=== PATIENT | female | born 1930 | race Caucasian/White ===

== ENCOUNTER 2017-02-07 11:19 | Inpatient (IN) | payer OTHER, MEDICAID ==
--- NOTE | 2017-02-07 12:10 | CPEKG ---
Heart Rate: 83 RR Interval: 723 P-R Interval: 152 QRSD Interval: 100 QT Interval: 376 QTC Interval: 442 P [place]: -3 QRS [place]: 55 T Wave [place]: -7 EKG Severity - ABNORMAL ECG - EKG Impression: SINUS RHYTHM EKG Impression: MULTIFORM VENTRICULAR PREMATURE COMPLEXES EKG Impression: BORDERLINE T ABNORMALITIES, INFERIOR LEADS Electronically Signed By: Ashish Anguiano 07-Feb-2017 13:01:14
[2017-02-07 12:18] LABS: ANION GAP 11 mEq/L (8-16); CALCIUM 9.8 mg/dL (8.5-10.4); CARBON DIOXIDE 23 mEq/l (22-31); CHLORIDE 105 mEq/L (97-110); CREATININE 0.7 mg/dL (0.6-1.0); GLOMERULAR FILTRATION RATE > 60; GLUCOSE 99 mg/dL (70-100); POTASSIUM 4.5 mEq/L (3.5-5.2); SODIUM 139 mEq/L (134-144)
[2017-02-07 12:33] LABS: % IMMATURE GRANULYOCYTES 0.6 % (0.0-1.1); ABSOLUTE IMMATURE GRANULOCYTES 0.05 10^3/uL (0.00-0.10); ADD DIFF? NO; ADD MORPH? NO; ADD SCAN? NO; ATYPICAL LYMPHOCYTE FLAG 10 (0-99); FRAGMENT RBC FLAG 0 (0-99); HEMATOCRIT 36.2 % (38.0-47.0); LEFT SHIFT FLG 0 (0-99); LIPEMIA HEMOLYSIS FLAG 90 (0-99); MEAN CELL VOLUME 86.4 fL (81.5-99.8); MEAN PLATELET VOLUME 10.4 fL (8.7-11.7); PLATELET CLUMPS FLAG 0 (0-99); PLATELET COUNT 343 10^3/uL (150-400); RED BLOOD CELL COUNT 4.19 10^6/uL (4.18-5.33); RED CELL DISTRIBUTION WIDTH 12.9 % (11.5-15.2)
[2017-02-07 12:35] LABS: MEAN CELL HEMOGLOBIN CONCENTR. 35.9 g/dL (32.4-36.7)
[2017-02-07] MEDS ORDERED: NS 1,000 ML IV ONE (12:51)
--- NOTE | 2017-02-07 13:32 | EDPHY ---
H & P Stated Complaint: Fatigue, Rt Arm pain Time Seen by Provider: 02/07/17 12:57 HPI/ROS: CHIEF COMPLAINT: Fatigue HISTORY OF PRESENT ILLNESS: The patient is an 86-year-old female who is brought to the emergency department by her family for fatigue over the last 2 days and difficulty getting up and out of bed. Patient denies being in any pain. She has not had a fever. She denies GI symptoms. She denies symptoms. She denies headache. She denies trauma. She states that she simply feels weak. No focal deficits. REVIEW OF SYSTEMS: Constitutional: Weak, denies: chills, fever, recent illness, recent injury EENTM: denies: blurred vision, double vision, nose congestion Respiratory: denies: cough, shortness of breath Cardiac: denies: chest pain, irregular heart rate, lightheadedness, palpitations Gastrointestinal/Abdominal: denies: abdominal pain, diarrhea, nausea, vomiting, blood streaked stools Genitourinary: denies: dysuria, frequency, hematuria, pain Musculoskeletal: denies: joint pain, muscle pain Skin: denies: lesions, rash, jaundice, bruising Neurological: denies: headache, numbness, paresthesia, tingling, dizziness, weakness Hematologic/Lymphatic: denies: blood clots, easy bleeding, easy bruising Immunologic/allergic: denies: HIV/AIDS, transplant EXAM: GENERAL: Pleasant, generally weak, , well-nourished and in no acute distress. HEAD: Atraumatic, normocephalic. EYES: Pupils equal round and reactive to light, extraocular movements intact, sclera anicteric, conjunctiva are normal. ENT: TMs normal, nares patent, oropharynx clear without exudates. Moist mucous membranes. NECK: Normal range of motion, supple without lymphadenopathy or JVD. LUNGS: Breath sounds clear to auscultation bilaterally and equal. No wheezes rales or rhonchi. HEART: Regular rate and rhythm without murmurs, rubs or gallops. ABDOMEN: Soft, nontender, normoactive bowel sounds. No guarding, no rebound. No masses appreciated. BACK: No CVA tenderness, no spinal tenderness, step-offs or deformities EXTREMITIES: Normal range of motion, no pitting or edema. No clubbing or cyanosis. NEUROLOGICAL: Cranial nerves II through XII grossly intact. Normal speech, can sit up in bed . 5/5 strength, normal movement in all extremities, normal sensation PSYCH: Normal mood, normal affect. SKIN: Warm, dry, normal turgor, no visible rashes or lesions. Source: Patient Exam Limitations: No limitations - Personal History Current Tetanus Diphtheria and Acellular Pertussis (TDAP): Unsure - Medical/Surgical History Hx Asthma: No Hx Chronic Respiratory Disease: No Hx Diabetes: No Hx Cardiac Disease: No Hx Renal Disease: No Hx Cirrhosis: No Hx Alcoholism: No Hx HIV/AIDS: No Hx Splenectomy or Spleen Trauma: No Other PMH: memory loss, hearing loss, hyperlipidemia, Respiratory failure, Eczema, cardiomegaly - Family History Significant Family History: No pertinent family hx - Social History Smoking Status: Unknown if ever smoked Alcohol Use: Sober Drug Use: None Constitutional: Initial Vital Signs Temperature (C) 37.3 C 02/07/17 11:26 Heart Rate 77 02/07/17 11:26 Respiratory Rate 18 02/07/17 11:26 Blood Pressure 159/119 H 02/07/17 11:26 O2 Sat (%) 97 02/07/17 11:26 O2 Delivery Mode Nasal Cannula O2 (L/minute) 2 Allergies/Adverse Reactions: No Known Allergies Allergy (Verified 02/07/17 16:07) Home Medications: Medication Instructions Recorded NK [No Known Home Meds] 02/07/17 Medical Decision Making - Diagnostics EKG Interpretation: An EKG obtained and was read and documented in trace view. Please see trace view for full reading and report. Sinus rhythm, PVCs, no ischemic changes, T- wave inversion in lead 3 only Imaging Results: Imaging Impressions Humerus X-Ray 02/07/17 12:17 Impression: No evidence for acute osseous abnormality in the left humerus. Shoulder X-Ray 02/07/17 12:17 Impression: 1. Moderate degenerative change acromioclavicular joint. Anterior curve to the acromion and subacromial spur. 2. Mild degenerative change glenohumeral joint. Imaging: Discussed imaging studies w/ on call Radiologist ED Course/Re-evaluation: The patient's workup is unremarkable however her daughter is here and states that she remains confused and weak. Daughter states that she had a temperature of 99 this morning and has been incontinent several times today. I suggested we treat her for supposed urinary tract infection and culture her urine. Daughter states that the patient is DNR does not wish to prolong her life and at this point would not want to start antibiotics. We did agree to admission to the hospital for further workup and evaluation. The patient does have a small amount of blood in her urine likely from a traumatic catheterization. 4:20 p.m. I discussed the case with Dr FLOWER Mike who will admit to the medical service. Differential Diagnosis: Partial list of the Differential diagnosis considered include but were not limited to; urinary tract infection, electrolyte abnormality, infection, pneumonia and although unlikely based on the history and physical exam, I also considered meningitis, fracture, acute coronary disease. - Data Points Laboratory Results: Laboratory Results 02/07/17 11:25 02/07/17 11:25 02/07/17 02/07/17 02/07/17 15:05 11:25 11:25 WBC 8.58 10^3/uL 10^3/uL (3.80-9.50) RBC 4.19 10^6/uL 10^6/uL (4.18-5.33) Hgb 13.0 g/dL g/dL (12.6-16.3) Hct 36.2 % L % (38.0-47.0) MCV 86.4 fL fL (81.5-99.8) MCH 31.0 pg pg (27.9-34.1) MCHC 35.9 g/dL g/dL (32.4-36.7) RDW 12.9 % % (11.5-15.2) Plt Count 343 10^3/uL 10^3/uL (150-400) MPV 10.4 fL fL (8.7-11.7) Neut % (Auto) 78.7 % H % (39.3-74.2) Lymph % (Auto) 8.0 % L % (15.0-45.0) [place] % (Auto) 11.3 % % (4.5-13.0) Eos % (Auto) 0.8 % % (0.6-7.6) Baso % (Auto) 0.6 % % (0.3-1.7) Nucleat RBC Rel Count 0.0 % % (0.0-0.2) Absolute Neuts (auto) 6.75 10^3/uL H 10^3/uL (1.70-6.50) Absolute Lymphs (auto) 0.69 10^3/uL L 10^3/uL (1.00-3.00) Absolute Monos (auto) 0.97 10^3/uL H 10^3/uL (0.30-0.80) Absolute Eos (auto) 0.07 10^3/uL 10^3/uL (0.03-0.40) Absolute Basos (auto) 0.05 10^3/uL 10^3/uL (0.02-0.10) Absolute Nucleated RBC 0.00 10^3/uL 10^3/uL (0-0.01) Immature Gran % 0.6 % % (0.0-1.1) Immature Gran # 0.05 10^3/uL 10^3/uL (0.00-0.10) Sodium 139 mEq/L mEq/L (134-144) Potassium 4.5 mEq/L mEq/L (3.5-5.2) Chloride 105 mEq/L mEq/L (97-110) Carbon Dioxide 23 mEq/l mEq/l (22-31) Anion Gap 11 mEq/L mEq/L (8-16) BUN 17 mg/dL mg/dL (7-23) Creatinine 0.7 mg/dL mg/dL (0.6-1.0) Estimated GFR > 60 Glucose 99 mg/dL mg/dL (70-100) Calcium 9.8 mg/dL mg/dL (8.5-10.4) Urine Color YELLOW Urine Appearance CLEAR Urine pH 5.0 (5.0-7.5) Ur Specific [place] 1.013 (1.002-1.030) Urine Protein NEGATIVE (NEGATIVE) Urine Ketones NEGATIVE (NEGATIVE) Urine Blood 2+ H (NEGATIVE) Urine Nitrate NEGATIVE (NEGATIVE) Urine Bilirubin NEGATIVE (NEGATIVE) Urine Urobilinogen 2.0 EU H EU (0.2-1.0) Ur Leukocyte Esterase NEGATIVE (NEGATIVE) Urine RBC 15-25 /hpf H /hpf (0-3) Urine WBC TNP Ur Epithelial Cells TRACE /lpf /lpf (NONE-1+) Urine Mucus TRACE /lpf /lpf (NONE-1+) Urine Glucose NEGATIVE (NEGATIVE) Medications Given: Discontinued Medications Sodium Chloride (Ns) 1,000 mls @ 0 mls/hr IV ONCE ONE PRN Reason: Wide Open Stop: 02/07/17 12:52 Last Admin: 02/07/17 12:52 Dose: 1,000 mls Departure - Departure Disposition: [facility] Clinical Impression: Generalized weakness Dementia Qualifiers: Dementia type: unspecified type Dementia behavioral disturbance: without behavioral disturbance Qualified Code(s): F03.90 - Unspecified dementia without behavioral disturbance Condition: Fair
[2017-02-07 15:21] LABS: COLOR YELLOW; LEUKOCYTE ESTERASE,URINE NEGATIVE (NEGATIVE); NITRITE,URINE NEGATIVE (NEGATIVE)
[2017-02-07 15:23] LABS: RBC,URINE 15-25 /hpf (0-3)
[2017-02-07 15:24] LABS: MUCUS TRACE /lpf (NONE-1+)
[2017-02-07] MEDS ORDERED: ACETAMINOPHEN 325 MG TAB PO PRN (16:18)
[2017-02-07] MEDS ORDERED: ONDANSETRON 4 MG/2 ML VIAL IVP PRN (16:18)
[2017-02-07] MEDS ORDERED: ONDANSETRON DISINTEGRATING 4 MG TAB PO PRN (16:18)
--- NOTE | 2017-02-07 18:39 | GHP ---
[f rep st] HISTORY AND PHYSICAL DATE OF ADMISSION: 02/07/2017 CHIEF COMPLAINT: Lethargy, anorexia, and weakness. HISTORY OF PRESENT ILLNESS: An 86-year-old female, who is really quite healthy with no underlying m edical conditions beyond mild cognitive impairment, who presents after a notable decline in the week preceding her arrival to the hospital. The patient was noted to be less active by her care provide rs and in her community at her assisted living. Then today the care provider noted that she was hav ing a very difficult time getting the patient up and out of bed at all to go to her meals, reporting that she felt weak and tired and had poor appetite. Therefore, the patient was brought to the [facility]. On my evaluation, she is not specifically endorsing abdominal pain or discomfort. She is denying nausea or vomiting. She denies chest pain, shortness of breath. Denies headache o r vision changes. Denies any new rashes or lower extremity edema. Was reporting left arm pain to t care provider at the assisted living, but is denying so to me. The family member also notes that the patient had urinary incontinence which is very unusual for her today. PAST MEDICAL HISTORY: Mild cognitive impairment. SOCIAL HISTORY: Negative for tobacco, alcohol, or illicit drugs. FAMILY HISTORY: Notable for the female relatives who live quite long. There is no other history of cognitive impairment in the family. ADVANCED DIRECTIVES: The patient is do not resuscitate. Her daughter would be her medical decision maker. REVIEW OF SYSTEMS: A 10-point review of systems is negative with the exception of that reported in the HPI. PHYSICAL EXAMINATION: VITAL SIGNS: Blood pressure 133/89, heart rate 94, respiratory rate 16, 94% on room air, 37.3. GENERAL: This is a very pleasant, elderly female, lying flat in bed. HEENT: N otable for moist mucous membranes. Eye exam is negative for any icterus. CARDIAC: Patient is regu lar rate and rhythm. Notable systolic murmur is heard best at the left upper sternal border. PULMO NARY: Good respiratory effort. Clear to auscultation bilaterally. GASTROINTESTINAL: The abdomen is soft. She has positive bowel sounds and nontender in all 4 quadrants. MUSCULOSKELETAL: Negativ e for any lower extremity edema. SKIN: Negative for any rashes. NEUROLOGIC: The patient is orien anayeli x1. PSYCHIATRIC: She is pleasant and cooperative on interview and examination. DATA: White count 8.5, hematocrit 36.2, platelets of 343, sodium 139, creatinine 0.7. Potassium no rmal. Urinalysis did not perform the test on white blood cells, however, there are red blood cells noted with urobilinogen. X-ray of the left shoulder, which I personally reviewed and interpreted, shows no acute fractures. Humeral x-ray on the left, which I personally reviewed and interpreted, shows no acute fractures. EKG. Which I personally reviewed and interpreted, shows a sinus rhythm, normal axis, interventricula r conduction delay with a PVC. No acute ST-T changes. ASSESSMENT AND PLAN: This is an 86-year-old female with mild cognitive impairment presenting with l ethargy. 1. Acute encephalopathy. Differential includes metabolic from a possible underlying infection. Lo w suspicion for medications as she is not on any chronic meds or new supplements prior to presentati on. Suspicious obviously for an acute urinary tract infection with the concurrent urinary incontine nce. Will send urine for culture and empirically treat with 1 dose of IV ceftriaxone this evening a s well as IV fluids in the emergency department. We will follow the patient's clinical progression. On discussion with the family if the urine culture is negative tomorrow, we can discontinue antibi otics and proceed forward with a stronger sensation worsening progression of her underlying cognitiv e dementia. 2. Urobilinogen in the urine. Will add liver function tests to her labs. No history of liver dise ase in the past, however. 3. Diet: Regular. DISPOSITION: Greater than 2 midnights as the patient is quite elderly, and I suspect will require p hysical therapy and occupational therapy for assessment so we can make safe disposition recommendati ons regardless of whether we are treating an active urinary tract infection or not. I have discussed the case with the emergency room physician. Patient will be triaged to the medical -surgical floor for care. /[id number]/MODL
[2017-02-07 19:03] LABS: ALBUMIN 3.5 g/dL (3.5-5.0); BILIRUBIN-CONJUGATED 0.5 mg/dL (0.0-0.5); BILIRUBIN-UNCONJUGATED 0.5 mg/dL (0.0-1.1); TOTAL PROTEIN 7.1 g/dL (6.3-8.2)
[2017-02-08] MEDS ORDERED: NS 500 ML IV ONE (11:08)
--- NOTE | 2017-02-08 13:12 | HOSPPROG ---
Hospitalist Progress Note Assessment/Plan: # Acute encephalopathy - no obvious reversible causes thus far in work-up - no issues overnight- oxygen saturations 98%on RA continue empiric treatment for UTI until Cx returns - no WBC elevation - PT/OT - empiric abx # chronic cognitive decline - possible we are seeing the waxing/waning decline of dementia - supportive care # Acute left arm pain - humeral XRAY (personally reviewed and interpreted) no acute fractures no actively complaining of pain - PT/OT # proph - lovenox # diet - poor appetite - regular # dispo - > 2 MN as need therapy assessments for dispo planning and culture results for Abx decisions I have discussed the case with RN - encourage PO and activity today Subjective: denies arm pain Objective: Vital Signs Temp Pulse Resp BP Pulse Ox 36.8 C 70 18 163/93 H 98 02/08/17 07:44 02/08/17 07:44 02/08/17 07:44 02/08/17 07:44 02/08/17 07:44 02/07/17 02/08/17 02/09/17 05:59 05:59 05:59 Intake Total 1200 Balance 1200 - Physical Exam Constitutional: appears nourished Eyes: anicteric sclera Ears, Nose, Mouth, Throat: moist mucous membranes Cardiovascular: regular rate and rhythym Respiratory: no respiratory distress, no rales or rhonchi Gastrointestinal: normoactive bowel sounds Genitourinary: no bladder fullness Skin: warm, normal color Musculoskeletal: No asymmetric calves Neurologic: No AAOx3 Psychiatric: interacting appropriately, No agitated Lymph, Heme, Immunologic: no cervical LAD ICD10 Worksheet Patient Problems: Problems Problem Status Onset Dementia Acute Generalized weakness Acute
[2017-02-08] MEDS: ENOXAPARIN 40 MG/0.4 ML SYR SC SCH (19:34)
[2017-02-09 04:59] LABS: HEMATOCRIT 31.8 % (38.0-47.0); MEAN CELL HEMOGLOBIN 29.6 pg (27.9-34.1); MEAN CELL HEMOGLOBIN CONCENTR. 34.6 g/dL (32.4-36.7); MEAN CELL VOLUME 85.5 fL (81.5-99.8); RED BLOOD CELL COUNT 3.72 10^6/uL (4.18-5.33); RED CELL DISTRIBUTION WIDTH 12.9 % (11.5-15.2)
[2017-02-09] MEDS: ENOXAPARIN 40 MG/0.4 ML SYR SC SCH (09:04)
--- NOTE | 2017-02-09 16:36 | HOSPPROG ---
Hospitalist Progress Note Assessment/Plan: # Acute encephalopathy - no obvious reversible causes thus far in work-up - no issues or agitation overnight pt has been clearer and more interactive each day EKG (personally reviewed and interpreted) sinus no acute changes- - oxygen saturations 98%on RA Urine cx - NGTD - PT/OT - complete 3d course of empiric abx for uncomplicated cystitis # chronic cognitive decline - possible we are seeing the waxing/waning decline of dementia - supportive care # Acute left arm pain - humeral XRAY -no acute fractures no actively complaining of pain - PT/OT # proph - lovenox # diet - poor appetite - regular # dispo - > 2 MN as need therapy assessments for dispo planning and culture results for Abx decisions I have discussed the case with CM - PT is recommending SNF - will investigate options for safe placement Subjective: denies arm pain today Objective: Vital Signs Temp Pulse Resp BP Pulse Ox 36.4 C 70 18 154/70 H 95 02/09/17 08:00 02/09/17 08:00 02/09/17 08:00 02/09/17 08:00 02/09/17 08:00 Laboratory Results 02/09/17 04:22 02/08/17 02/09/17 02/10/17 05:59 05:59 05:59 Intake Total 1200 550 750 Balance 1200 550 750 - Physical Exam Constitutional: chronically ill appearing Eyes: anicteric sclera Ears, Nose, Mouth, Throat: moist mucous membranes Cardiovascular: regular rate and rhythym Respiratory: no respiratory distress, no rales or rhonchi Gastrointestinal: normoactive bowel sounds, soft, non-tender abdomen Genitourinary: no bladder fullness Skin: warm, normal color Musculoskeletal: No asymmetric calves Neurologic: AAOx3 Psychiatric: interacting appropriately, not anxious Lymph, Heme, Immunologic: no cervical LAD ICD10 Worksheet Patient Problems: Problems Problem Status Onset Dementia Acute Generalized weakness Acute
[2017-02-10] MEDS: ENOXAPARIN 40 MG/0.4 ML SYR SC SCH (12:29)
--- NOTE | 2017-02-10 13:26 | PDIAF ---
- Diagnosis Diagnosis: ENCEPHALOPATHY Code Status: Do Not Resuscitate - Medication Management Discharge Medications: Medications to Continue on Transfer Acetaminophen [Tylenol 325mg (*)] 650 mg PO Q4HRS PRN #0 tab 02/10/17 [Last Taken Unknown] Discharge Medications: Refer to the Discharge Home Medication list for PRN reason. - Orders Services needed: Registered Nurse, Physical Therapy, Occupational Therapy Diet Recommendation: no restrictions on diet Diet Texture: Regular Texture Diet - Follow Up Care Current Providers and Referrals: Silke Pandya PA [Primary Care Provider] - As per Instructions
--- NOTE | 2017-02-10 15:57 | HOSPPROG ---
Hospitalist Progress Note Assessment/Plan: # Acute encephalopathy - no obvious reversible causes thus far in work-up - no issues or agitation overnight pt has been clearer and more interactive each day EKG (personally reviewed and interpreted) sinus no acute changes- - oxygen saturations 95%on RA Urine cx - NGTD - PT/OT - completed 3d course of empiric abx for uncomplicated cystitis # chronic cognitive decline - possible we are seeing the waxing/waning decline of dementia - supportive care # Acute left arm pain - humeral XRAY -no acute fractures no actively complaining of pain - PT/OT # proph - lovenox # diet - poor appetite - regular # dispo - > 2 MN as need therapy assessments for dispo planning and culture results for Abx decisions I have discussed the case with CM - working on SNF dc today Subjective: tired but no pain Objective: Vital Signs Temp Pulse Resp BP Pulse Ox 37.0 C 70 16 147/64 H 94 02/10/17 15:26 02/10/17 15:26 02/10/17 15:26 02/10/17 15:26 02/10/17 15:26 Laboratory Results 02/09/17 04:22 02/09/17 02/10/17 02/11/17 05:59 05:59 05:59 Intake Total 550 1000 Balance 550 1000 - Physical Exam Constitutional: appears nourished Eyes: anicteric sclera Ears, Nose, Mouth, Throat: moist mucous membranes Cardiovascular: regular rate and rhythym Respiratory: no respiratory distress Gastrointestinal: normoactive bowel sounds, soft, non-tender abdomen Genitourinary: no bladder fullness Skin: warm, normal color Musculoskeletal: No asymmetric calves Neurologic: AAOx3 Psychiatric: interacting appropriately Lymph, Heme, Immunologic: no cervical LAD ICD10 Worksheet Patient Problems: Problems Problem Status Onset Dementia Acute Generalized weakness Acute
--- NOTE | 2017-02-10 18:55 | GDS ---
[f rep st] DISCHARGE SUMMARY DISCHARGE DIAGNOSES: Include: 1. Acute encephalopathy, presumed secondary to underlying cystitis and dementia. 2. Mild cognitive decline. HISTORY OF PRESENT ILLNESS: An 86-year-old female with limited past medical history, but known pro gressing dementia, who is brought in by family for lethargy and somnolence. Patient was admitted an d empirically treated for occult UTI based on abnormal urinalysis. She received 3 days of IV antibi otics, with then a normal urine culture. Antibiotics were discontinued. On the day of disposition, she is more at her baseline mental status. Able to complete her ADLs wit h prompting, and is oriented to person, place, and time. The patient is being discharged to alf facility for increased support and prompting of care. Presumed acute uncomplicated cystitis: The patient was not able to predictably provide symptoms, pryor d abnormal urinalysis, and was treated empirically. Urine culture is negative. She received a full 3-day course. MEDICATIONS AT THE TIME OF TRANSFER: Please reference medication reconciliation printed on 02/11/20 17. PENDING STUDIES: At the time of this dictation, none. TIME SPENT: I spent greater than 30 minutes in the planning and coordination of this discharge. /[id number]/MODL
[2017-02-11] MEDS: ENOXAPARIN 40 MG/0.4 ML SYR SC SCH (10:19)
--- NOTE | 2017-02-11 14:21 | HOSPPROG ---
Hospitalist Progress Note Assessment/Plan: # Acute encephalopathy - no obvious reversible causes thus far in work-up - no issues or agitation overnight pt has been clearer and more interactive each day EKG - sinus no acute changes- - oxygen saturations 95%on RA Urine cx - NGTD - PT/OT - completed 3d course of empiric abx for uncomplicated cystitis # chronic cognitive decline - possible we are seeing the waxing/waning decline of dementia - supportive care # Acute left arm pain - humeral XRAY -no acute fractures no actively complaining of pain - PT/OT # proph - lovenox # diet - poor appetite - regular # dispo - > 2 MN as need therapy assessments for dispo planning and culture results for Abx decisions I have discussed the case with CM - waiting on approval for SNF discharge today Subjective: tired Objective: Vital Signs Temp Pulse Resp BP Pulse Ox 36.9 C 72 16 129/83 H 97 02/10/17 23:01 02/10/17 23:01 02/10/17 23:01 02/10/17 23:01 02/10/17 23:01 Laboratory Results 02/09/17 04:22 02/10/17 02/11/17 02/12/17 05:59 05:59 05:59 Intake Total 1000 750 Balance 1000 750 - Physical Exam Constitutional: appears nourished Eyes: anicteric sclera Ears, Nose, Mouth, Throat: moist mucous membranes Cardiovascular: regular rate and rhythym Respiratory: no respiratory distress, no rales or rhonchi Gastrointestinal: normoactive bowel sounds, soft, non-tender abdomen Genitourinary: no bladder fullness Skin: warm, normal color Neurologic: No AAOx3 Psychiatric: interacting appropriately Lymph, Heme, Immunologic: no cervical LAD ICD10 Worksheet Patient Problems: Problems Problem Status Onset Dementia Acute Generalized weakness Acute
[2017-02-12] MEDS: ENOXAPARIN 40 MG/0.4 ML SYR SC SCH (10:05)
--- NOTE | 2017-02-12 10:37 | HOSPPROG ---
Hospitalist Progress Note Assessment/Plan: 86-year-old with dementia is admitted with acute encephalopathy. Evaluation in the hospital so far has not revealed any obvious cause. Although she was treated for possible cystitis with 3 days of empiric antibiotics. # Acute encephalopathy - no obvious reversible causes thus far in work-up - no issues or agitation overnight * Patient working with PT and OT and plans on transferring to [facility] once case management finds an accepting facility * She is status post treatment for possible cystitis with 3 days of antibiotic * She is interacting although continues to be weak this could certainly just be an ongoing decline from her dementia # chronic cognitive decline - possible we are seeing the waxing/waning decline of dementia * Continue supportive care # Acute left arm pain - humeral XRAY -no acute fractures # proph - lovenox # diet - poor appetite - regular # dispo - > working with case management for possible discharge to skilled facility for ongoing care. Subjective: Patient new to [place] reviewed. She is sleeping and has no complaints when I wake her up. Specifically no shortness of breath or chest pain. No abdominal complaints. Objective: Vital Signs Temp Pulse Resp BP Pulse Ox 36.3 C 66 16 174/75 H 95 02/12/17 05:50 02/12/17 05:50 02/12/17 05:50 02/12/17 05:50 02/12/17 05:50 Laboratory Results 02/09/17 04:22 02/11/17 02/12/17 02/13/17 05:59 05:59 05:59 Intake Total 750 Balance 750 - Physical Exam Constitutional: chronically ill appearing Eyes: PERRL Cardiovascular: regular rate and rhythym Respiratory: no respiratory distress Gastrointestinal: normoactive bowel sounds, soft, non-tender abdomen Neurologic: No AAOx3 Psychiatric: interacting appropriately, poor insight, poor judgement, poor memory ICD10 Worksheet Patient Problems: Problems Problem Status Onset Dementia Acute Generalized weakness Acute
--- NOTE | 2017-02-13 09:20 | PDINTPN ---
Nurse Supervisor Progress Note Assessment/Plan: 86-year-old with dementia is admitted with acute encephalopathy. Evaluation in the hospital so far has not revealed any obvious cause. Although she was treated for possible cystitis with 3 days of empiric antibiotics. # Acute encephalopathy - no obvious reversible causes thus far in work-up - no issues or agitation overnight * Patient working with PT and OT and plans on transferring to shelter once case management finds an accepting facility * She is status post treatment for possible cystitis with 3 days of antibiotic * She is interacting although continues to be weak this could certainly just be an ongoing decline from her dementia # chronic cognitive decline - possible we are seeing the waxing/waning decline of dementia * Continue supportive care # Acute left arm pain - humeral XRAY -no acute fractures # proph - lovenox # diet - poor appetite - regular # dispo - > working with case management for possible discharge to skilled facility for ongoing care. Subjective: Just woke up. States she slept well otherwise no complaints Objective: Vital Signs Temp Pulse Resp BP Pulse Ox 37.0 C 67 16 145/69 H 92 02/13/17 05:19 02/13/17 05:19 02/13/17 05:19 02/13/17 05:19 02/13/17 05:19 Laboratory Results 02/09/17 04:22 02/12/17 02/13/17 02/14/17 05:59 05:59 05:59 Intake Total 340 Balance 340 Physical Exam - Physical Exam General Appearance: alert Cardiac/Chest: regular rate, rhythm Abdomen: non-tender Neuro/Psych: No oriented x 3 ICD10 Worksheet Patient Problems: Problems Problem Status Onset Dementia Acute Generalized weakness Acute
[2017-02-13] MEDS: ENOXAPARIN 40 MG/0.4 ML SYR SC SCH ×2 (10:26→10:28)
[2017-02-14 09:06] VITALS: RESP 16
--- NOTE | 2017-02-14 10:08 | HOSPPROG ---
Hospitalist Progress Note Assessment/Plan: 86-year-old with dementia is admitted with acute encephalopathy. Evaluation in the hospital so far has not revealed any obvious cause. Although she was treated for possible cystitis with 3 days of empiric antibiotics. no change overnight # Acute encephalopathy - no obvious reversible causes thus far in work-up - no issues or agitation overnight * Patient working with PT and OT and plans on transferring to [facility] once case management finds an accepting facility * She is status post treatment for possible cystitis with 3 days of antibiotic * She is interacting although continues to be weak this could certainly just be an ongoing decline from her dementia # chronic cognitive decline - possible we are seeing the waxing/waning decline of dementia * Continue supportive care # Acute left arm pain - humeral XRAY -no acute fractures # proph - lovenox # diet - poor appetite - regular # dispo - > working with case management for possible discharge to skilled facility for ongoing care. Subjective: Patient denies pain, slept well poor memory Objective: Vital Signs Temp Pulse Resp BP Pulse Ox 36.9 C 68 16 158/73 H 96 02/14/17 09:05 02/14/17 09:05 02/14/17 09:05 02/14/17 09:05 02/14/17 09:05 Laboratory Results 02/09/17 04:22 02/13/17 02/14/17 02/15/17 05:59 05:59 05:59 Intake Total 340 200 Balance 340 200 - Physical Exam Constitutional: no apparent distress Cardiovascular: regular rate and rhythym Respiratory: no respiratory distress Psychiatric: poor memory ICD10 Worksheet Patient Problems: Problems Problem Status Onset Dementia Acute Generalized weakness Acute
[2017-02-14] MEDS: ENOXAPARIN 40 MG/0.4 ML SYR SC SCH (10:56)
--- NOTE | 2017-02-14 15:13 | PDIAF ---
- Diagnosis Diagnosis: ENCEPHALOPATHY likely from progressive dementia Code Status: Do Not Resuscitate - Medication Management Discharge Medications: Medications to Continue on Transfer Acetaminophen [Tylenol 325mg (*)] 650 mg PO Q4HRS PRN #0 tab 02/10/17 [Last Taken Unknown] Discharge Medications: Refer to the Discharge Home Medication list for PRN reason. - Orders Services needed: Registered Nurse, Physical Therapy, Occupational Therapy Diet Recommendation: no restrictions on diet Diet Texture: Regular Texture Diet - Follow Up Care Current Providers and Referrals: Silke Pandya PA [Primary Care Provider] - As per Instructions
[2017-02-14 15:16] VITALS: BP 136/62; PULSE 88; TEMP 98; O2SAT 95
--- NOTE | 2017-02-14 15:44 | GDS ---
[f rep st] DISCHARGE SUMMARY DISCHARGE DIAGNOSES: 1. Acute encephalopathy, presumed secondary to progressive dementia, possible underlying cystitis. 2. Dementia. HOSPITAL COURSE: This is an 86-year-old with limited past medical history, but known progressive de mentia, who was brought in by family for lethargy and somnolence. She was admitted and empirically treated for occult UTI based on abnormal urinalysis and received 3 days of antibiotics. She had a n ormal urine culture and antibiotics were discontinued. She continued to do well in the hospital. S he had no fevers. Her vital signs remained stable and had no complaints. She was ambulating with P hysical Therapy without problems and it is felt her encephalopathy is likely due to progressive mane ntia, possible cystitis; however, she appears to have stabilized and needs further long-term care. MEDICATIONS ON TRANSFER: Please see medication reconciliation. FOLLOWUP: She will be discharged to [facility] for rehab and possible long-term care after that. TIME SPENT: Greater than 30 minutes in the planning and coordination of care of discharge. /[id number]/MODL
== END 2017-02-14 17:11 | DRG 72 ==
LOC: OBSVTOIN 16:18 → F1N 17:10
PROVIDERS: ADMIT Student in an Organized Health Care Education/Training Program; ATTEND Hospitalist
DX: G93.40 Encephalopathy, unspecified (principal); N30.90 Cystitis, unspecified without hematuria; F03.90 Unspecified dementia, unspecified severity, without behavioral disturbance, psychotic disturbance, mood disturbance, and anxiety
CPT/HCPCS: 97116-GP; 97161-GP; G8978-GP-CL; G8979-GP-CJ; J0696; J1650